=== PATIENT | male | born 1995 | race Caucasian/White ===

== ENCOUNTER 2019-11-12 15:32 | Outpatient (CLI) | payer OTHER ==
--- NOTE | 2019-11-12 16:23 | ULT ---
LIMITED LEFT BREAST ULTRASOUND: Date: 11/12/2019 HISTORY: 24-year-old male with palpable abnormality. Concern for gynecomastia in left breast. FINDINGS: Sonographic evaluation of the retroareolar regions of both breasts was performed. No evidence of fibroglandular tissue or mass is seen on either side. IMPRESSION: Unremarkable exam. POS: OFF
== END 2019-11-12 15:33 | disposition home or self-care (01) ==
LOC: BICULT 15:32
PROVIDERS: ATTEND Family Medicine
DX: N62 Hypertrophy of breast (principal)